=== PATIENT | female | born 1995 | race Caucasian/White ===

== ENCOUNTER 2023-10-07 17:41 | Emergency (ER) | payer OTHER ==
[2023-10-07 18:02] VITALS: BP 128/60; PULSE 81; RESP 18; TEMP 98.2; BMI 24.5
== END 2023-10-07 19:39 | disposition home or self-care (01) ==
LOC: JERFT 17:41
DX: R19.04 Left lower quadrant abdominal swelling, mass and lump (principal); R10.32 Left lower quadrant pain
CPT/HCPCS: 99282-25

== ENCOUNTER 2024-04-29 22:59 | Emergency (ER) | payer OTHER ==
[2024-04-29 23:05] VITALS: BMI 25.4
[2024-04-30] MEDS: SODIUM CHLORIDE 1,000 ML IV STA (00:17)
[2024-04-30 00:33] LABS: EOS % 0.7 % (0-4.5); HEMATOCRIT 41.5 % (32.4-45.2); HEMOGLOBIN 13.9 GM/dL (10.7-15.3); LYMPH % 33.8 % (8-40); MCH 31.3 pg (25.7-33.7); MCHC 33.4 g/dl (32.0-36.0); MEAN CELL VOLUME 93.6 fl (80-96); MEAN PLT VOLUME 7.6 fl (7.5-11.1); MONO % 4.5 % (3.8-10.2); PLATELET COUNT 435 10^3/uL (134-434); RBC 4.43 M/mm3 (3.60-5.2); RDW 14.6 % (11.6-15.6); WHITE BLOOD COUNT 6.6 K/mm3 (4.0-10.0)
[2024-04-30 00:40] LABS: INR 0.97 (0.83-1.09)
[2024-04-30 00:43] LABS: ACTIVATED PTT 34.2 SECONDS (25.2-36.5)
[2024-04-30 00:50] LABS: MAGNESIUM 2.2 mg/dL (1.8-2.4)
[2024-04-30] MEDS ORDERED: ACETAMINOPHEN INJECTION 100 ML ONE (01:43)
[2024-04-30] MEDS: ACETAMINOPHEN 1000 MG/100 ML BAG IVPB ONE (01:46)
[2024-04-30 01:47] LABS: ALBUMIN 3.9 g/dl (3.4-5.0); BLOOD UREA NITROGEN 6.7 mg/dL (7-18); CALCIUM 8.9 mg/dL (8.5-10.1)
[2024-04-30 01:51] LABS: CREATININE 0.8 mg/dL (0.55-1.3)
[2024-04-30 01:52] LABS: BILIRUBIN,TOTAL 0.2 mg/dL (0.2-1); TOT PROT 8.4 g/dl (6.4-8.2)
[2024-04-30 02:37] VITALS: BP 112/62; PULSE 99; RESP 19; TEMP 98.4
== END 2024-04-30 03:06 | disposition home or self-care (01) ==
LOC: JER 22:59
PROC: 3E033NZ Introduction of Analgesics, Hypnotics, Sedatives into Peripheral Vein, Percutaneous Approach (ICD-10-PCS; principal; 2024-04-30)
PROC: 3E0337Z Introduction of Electrolytic and Water Balance Substance into Peripheral Vein, Percutaneous Approach (ICD-10-PCS; 2024-04-30)
DX: R00.2 Palpitations (principal); R53.1 Weakness; R53.83 Other fatigue; R06.02 Shortness of breath; Z20.822 Contact with and (suspected) exposure to COVID-19
CPT/HCPCS: 0241U-QW; 36415; 71045-TC-FY; 80053; 83735; 84439; 84443; 84484; 84703; 85025; 85379; 85610; 85730; 93005; 93010; 99285-25; J0131